=== PATIENT | male | born 1960 | race Caucasian/White ===

== ENCOUNTER 2016-07-10 09:53 | Inpatient (IN) | payer OTHER ==
[~2016-07-10] VITALS: Ht 172.7 cm; Wt 79.8 kg
[2016-07-10 10:02] VITALS: BP 158/98
--- NOTE | 2016-07-10 10:06 | NUR ---
Patient to bed 04.
--- NOTE | 2016-07-10 10:08 | NUR ---
PATIENT PRESENTS TO ED DUE TO BLOOD IN STOOL SINCE LAST NOC. PT DENIES ANY OTHER MEDICAL HX. PT STATES HE DRINKS EXCESSIVE AMOUNTS OF ALCOHOL, HAD BEER THIS AM. DENIES N/V/D; SKIN IS PINK/WARM/DRY; AAOX4 WITH EVEN AND STEADY GAIT; LUNGS CLEAR BL; HR EVEN AND REGULAR; PT DENIES ANY FEVER, CP, SOB, OR COUGH AT THIS TIME; PATIENT STATES PAIN OF 0/10 AT THIS TIME;PATIENT POSITIONED FOR COMFORT; HOB ELEVATED; BEDRAILS UP X2; BED DOWN. ER MD MADE AWARE OF PT STATUS.
--- NOTE | 2016-07-10 10:16 | NUR ---
RELAYED TO DR. POZO RESULT OF URINE DIPSTICK
--- NOTE | 2016-07-10 10:18 | NUR ---
HECTOR (CHETAN) EVALUATING PATIETN AT BEDSIDE.
--- NOTE | 2016-07-10 10:30 | NUR ---
DR. POZO AT BEDSIDE
--- NOTE | 2016-07-10 10:36 | NUR ---
LAB AT BEDSIDE
--- NOTE | 2016-07-10 10:39 | NUR ---
XRAY AT BEDSIDE
--- NOTE | 2016-07-10 12:38 | NUR ---
REPORT GIVEN TO CHANDA PT AWARE WILL BE TRANSFER TO TELE
--- NOTE | 2016-07-10 12:55 | NUR ---
TRANSFER TO TELE VIA PAWEL LEONARDOO, ASSISTED BY KEE SALINAS AND EMT DENA, ASSISTED BY .
[2016-07-10 13:00] VITALS: BP 133/94
--- NOTE | 2016-07-10 13:00 | NUR ---
Admitted from ED with chief complaint of BLOOD IN STOOL THAT STARTED DANCE ARTIST TODAY. PT AAOX4, DJIBOUTIAN SPEAKING ONLY. ChaCha [id number] TANKAGE GRINDER SERVICE. PT IS A 55 y/o ,Male, Cooperative,oriented to call light, bed, phone,television, bathroom, smoking policy,visiting hours, procedures, ID bracelet on. Belongings list checked. INSTRUCTED PT TO CALL FOR ASSISTANCE, CALL LIGHT WITHIN REACH. PT VERBALIZED UNDERSTANDING.
[2016-07-10] MEDS ORDERED: BOWEL EVACUANT DRINK 4,000 ML PDS PO ONE (13:05)
[2016-07-10] MEDS ORDERED: BISACODYL 5 MG TABEC PO ONE ×2 (13:05→20:00)
[2016-07-10] MEDS ORDERED: MORPHINE SULFATE 4 MG/ML SYR IVP PRN (14:00)
[2016-07-10] MEDS ORDERED: ONDANSETRON 4 MG/2 ML VIAL IVP PRN (14:00)
[2016-07-10] MEDS ORDERED: BISACODYL 5 MG TABEC PO SCH ×2 (14:00→20:00)
[2016-07-10] MEDS ORDERED: MORPHINE SULFATE 2 MG/ML SYR IVP PRN (14:00)
[2016-07-10] MEDS ORDERED: BOWEL EVACUANT DRINK 4,000 ML PDS PO SCH (14:00)
[2016-07-10] MEDS ORDERED: ACETAMINOPHEN 325 MG TAB PO PRN (14:00)
[2016-07-10] MEDS ORDERED: LORazepam 2 MG/ML VIAL IM/IVP PRN (14:05)
[2016-07-10] MEDS: NACL 0.9% 1,000 ML IV SCH (14:33)
[2016-07-10 15:30] VITALS: BP 134/91
--- NOTE | 2016-07-10 15:30 | NUR ---
LATE ENTRY AT 1520 HRS: PT'S TOLD CHANDA Yeboah (ITALIAN DIAL EQUIPMENT ENGINEER NURSE) THAT PT ALMOST PASS OUT WHILE IN THE BATHROOM. PER CHANDA Yeboah, PT WAS ALREADY LYING IN BED UPON RUSHING TO THE ROOM. PT STATED HE DID NOT HIT HIS HEAD AND WAS NOT HURT. CALLED DR. GONZALEZ AND MADE AWARE OF THE "UNWITNESSED FALL". VITAL SIGNS STABLE. NO C/O PAIN. NO SOB NOTED. INSTRUCTED PT TO CALL FOR ASSISTANCE, CALL LIGHT WITHIN REACH, PT VERBALIZED UNDERSTANDING. BEDSIDE COMMODE PROVIDED AND PLACED AT THE BEDSIDE. WILL CONTINUE TO MONITOR.
--- NOTE | 2016-07-10 18:15 | NUR ---
PT SEEN BY DR. HILL. NEW ORDERS GIVEN. EXPLAINED TO THE PT RISKS AND BENEFITS OF COLONOSCOPY. CONSENT FOR COLONOSCOPY SIGNED BY PT, VERBALIZED UNDERSTANDING.
--- NOTE | 2016-07-10 19:06 | NUR ---
PT AWAKE, NO SOB NOTED. NO COMPLAINTS MADE. TALKING TO FAMILY AT THE BEDSIDE. NPO POST MIDNIGHT INSTRUCTED PT, VERBALIZED UNDERSTANDING. WILL ENDORSE TO NEXT SHIFT NURSE FOR CONTINUITY OF CARE.
--- NOTE | 2016-07-10 19:15 | NUR ---
RECEIVED PT IN STABLE CONDITION FROM CHANDA Ng RN. NO SOB, NO SIGNS OF DISTRESS. IV TO LT AC 20G PATENT, ASYMPTOMATIC, INTACT, IVF RUNNING. PT IS AOX4, AMBULATORY WITH ASSIST, URUGUAYAN SPEAKING. AT BEDSIDE. SKIN IS INTACT. PT DENIES PAIN AT THIS TIME. EDUCATED PT THAT HE IS TO FINISH ENTIRE BOTTLE OF GOLYTELY BEFORE 0000 AND HE IS NOT TO EAT OR DRINK AFTER THAT SINCE HE WILL BE HAVING A PROCEDURE DONE TOMORROW. PT VERBALIZED UNDERSTANDING. PLAN OF CARE DISCUSSED WITH PT. SAFETY MEASURES IN PLACE. CALL LIGHT WITHIN REACH. WILL CONTINUE TO MONITOR.
[2016-07-10 20:00] VITALS: BP 133/78
[2016-07-10] MEDS: PANTOPRAZOLE 40 MG INJ VIAL IVP SCH (21:21)
--- NOTE | 2016-07-10 21:21 | NUR ---
PT TOLERATED DUE MED WELL. NO SOB, NO SIGNS OF DISTRESS. IV SITE ASYMPTOMATIC, INTACT, PATENT, IVF RUNNING. PT DENIES PAIN AT THIS TIME. PLAN OF CARE DISCUSSED WITH PT. SAFETY MEASURES IN PLACE. CALL LIGHT WITHIN REACH. WILL CONTINUE TO MONITOR.
--- NOTE | 2016-07-10 23:58 | NUR ---
PT FINISHED ENTIRE BOTTLE OF GOLYTELY, EDUCATED PT THAT HE IS NOT TO EAT OR DRINK FROM NOW ON. PT VERBALIZED UNDERSTANDING.
[2016-07-11] VITALS: BP 142/81
--- NOTE | 2016-07-11 00:05 | NUR ---
VS STABLE ON ROOM AIR. NO SOB, NO SIGNS OF DISTRESS. IV SITE ASYMPTOMATIC, INTACT, PATENT, IVF RUNNING. PT DENIES PAIN AT THIS TIME. PLAN OF CARE DISCUSSED WITH PT. SAFETY MEASURES IN PLACE. CALL LIGHT WITHIN REACH. WILL CONTINUE TO MONITOR.
--- NOTE | 2016-07-11 02:04 | NUR ---
PT ASLEEP IN BED. NO SOB, NO SIGNS OF DISTRESS. IV SITE ASYMPTOMATIC, INTACT, PATENT, IVF RUNNING. SAFETY MEASURES IN PLACE. CALL LIGHT WITHIN REACH. WILL CONTINUE TO MONITOR.
[2016-07-11 04:00] VITALS: BP 133/77
[2016-07-11] MEDS: NACL 0.9% 1,000 ML IV SCH ×2 (06:05→10:00)
--- NOTE | 2016-07-11 07:15 | NUR ---
ENDORSED PT IN STABLE CONDITION TO KEE GILLIAM. ALL NEEDS HAVE BEEN MET AT THIS TIME.
--- NOTE | 2016-07-11 07:16 | NUR ---
PT ALERT AND ORIENTED X4. BHUTANESE SPEAKING, BREATHING EVENLY AND UNLABORED. NO SIGNS OF ACUTE DISTRESS. SKIN IS WARM AND DRY. PT ON NPO FOR COLONOSCOPY TODAY. PREOP CHECKLIST DONE BY RN DIABETES EDUCATOR NURSE. ALSO PT HAS BEEN TAKING GOLYTELY AND HAD 3 BM'S LAST NIGHT PER RN DIABETES EDUCATOR RN. DENIES OF ANY PAIN AT THIS TIME. ALL NEEDS ATTENDED, SAFETY PRECAUTIONS MAINTAINED. CALL LIGHT WITHIN REACH.
[2016-07-11] MEDS ORDERED: fentaNYL 0.05 MG/ML VIAL ONE (07:38)
[2016-07-11] MEDS ORDERED: MIDAZOLAM 2 MG/2 ML VIAL ONE (07:38)
[2016-07-11 07:40] VITALS: BP 152/86
--- NOTE | 2016-07-11 07:40 | NUR ---
PT ALERT AND RESPONSIVE NO SIGNS OF ACUTE DISTRESS. WENT OFF UNIT TO OR FOR COLONOSCOPY.
[2016-07-11 08:25] VITALS: BP 133/80
--- NOTE | 2016-07-11 08:25 | NUR ---
PT CAME BACK FROM COLONOSCOPY, AWAKE ALERT AND ORIENTED. NO SIGNS OF ACUTE DISTRESS. DENIES OF ANY NAUSEA PAIN OR DISCOMFORT. ALL NEEDS ATTENDED. SAFETY PRECAUTIONS MAINTAINED. CALL LIGHT WITHIN REACH.
[2016-07-11] MEDS: fentaNYL 0.05 MG/ML VIAL IVP ONE ×2 (08:29→09:33)
[2016-07-11] MEDS: MIDAZOLAM 2 MG/2 ML VIAL IVP ONE ×2 (08:29→09:33)
--- NOTE | 2016-07-11 08:42 | NUR ---
PATIENT HAS BEEN SCREENED AND CATEGORIZED MODERATE NUTRITION RISK. PATIENT WILL BE SEEN WITHIN 3-5 DAYS OF ADMISSION. 07/13/16-07/15/[address]
[2016-07-11] MEDS: PANTOPRAZOLE 40 MG INJ VIAL IVP SCH (08:54)
[2016-07-11 12:00] VITALS: BP 122/70
--- NOTE | 2016-07-11 14:31 | NUR ---
CM NOTE FAXED INITIAL REVIEW TO [facility] FAX# [phone] PH# NOVEMBER [phone]
--- NOTE | 2016-07-11 15:44 | NUR ---
WAS SEEN BY DR. LISA Anderson. RECEIVED ORDER MAY D/C IF H/H IS STABLE AND CLEARED BY GI DOCTOR. PT MADE AWARE. NOTED AND CARRIED OUT
[2016-07-11 16:00] VITALS: BP 124/73
--- NOTE | 2016-07-11 16:48 | NUR ---
H/H OBTAINED AND DR GONZALEZ MADE AWARE. PAGED DR. KAUR. NO RESPONSE. CONTINUE TO MONITOR.
--- NOTE | 2016-07-11 18:05 | NUR ---
CHARGE NURSE AWARE DR Jodi JACOBSON FOR F/U FOR D/C.
--- NOTE | 2016-07-11 18:05 | NUR ---
PAGED DR. KAUR, STILL NO RESPONSE. DR GONZALEZ IS AWARE, F/U WITH GI DOCTOR IF OK TO D/C.
--- NOTE | 2016-07-11 19:00 | NUR ---
PT ALERT AND ORIENTED, NO SIGNS OF ACUTE DISTRESS. ENDORSED TO ONCOMING SOLE SPLITTER NURSE FOR CONTINUITY OF CARE.
[2016-07-11] MEDS ORDERED: NEPHRO-VITE VIT1 TAB PO (19:12)
[2016-07-11] MEDS ORDERED: FERROUS SULFAT325 M1 PO (19:12)
[2016-07-11] MEDS ORDERED: CITRUCEL WI2 GM/Dose PO (19:13)
--- NOTE | 2016-07-11 19:21 | NUR ---
D/C OK BY DR. JACOBSON PER 'S ORDERS. NOTED AND CARRIED OUT. PT MADE AWARE. ENDORSED TO TRIMMING MACHINE OPERATOR NURSE .
--- NOTE | 2016-07-11 19:22 | NUR ---
RECEIVED PT IN STABLE CONDITION FROM KEE GILLIAM. PT TO BE DC. DISCHARGE TEACHING AND INSTRUCTIONS GIVEN BY [place]. PT IS GETTING READY TO LEAVE. NO SOB, NO SIGNS OF DISTRESS. IV TO LT AC 20G PATENT, ASYMPTOMATIC, INTACT, WILL DC. PT IS AOX4, AMBULATORY WITH ASSIST, ENGLISH SPEAKING. AND DAUGHTER AT BEDSIDE. SKIN IS INTACT. PT DENIES PAIN AT THIS TIME. PT S/P COLONOSCOPY TODAY BY MD JACOBSON. DC OK BY MD GONZALEZ AND MD JACOBSON PT GIVEN INSTRUCTIONS TO F/U WITH PCP AND MD JACOBSON. PT VERBALIZED UNDERSTANDING. SAFETY MEASURES IN PLACE. CALL LIGHT WITHIN REACH. WILL CONTINUE TO MONITOR.
--- NOTE | 2016-07-11 19:55 | NUR ---
DC IV TO LT AC, PT TOLERATED WELL. MINIMAL BLEEDING NOTED. ID BANDS REMOVED. ALL QUESTIONS ANSWERED PRIOR TO DC. PT DC UNDER CARE OF FAMILY IN STABLE CONDITION.
== END 2016-07-11 19:55 | disposition home or self-care (01) | DRG 244 ==
LOC: MED 09:53 → MTU 11:58
PROVIDERS: ADMIT Hospitalist; ATTEND Hospitalist
PROC: 0DBN8ZX Excision of Sigmoid Colon, Via Natural or Artificial Opening Endoscopic, Diagnostic (ICD-10-PCS; 2016-07-11)
PROC: 0DBF8ZX Excision of Right Large Intestine, Via Natural or Artificial Opening Endoscopic, Diagnostic (ICD-10-PCS; principal; 2016-07-11 11:20)
PROC: 0DBN8ZZ Excision of Sigmoid Colon, Via Natural or Artificial Opening Endoscopic (ICD-10-PCS; 2016-07-11 11:20)
DX: K57.30 Diverticulosis of large intestine without perforation or abscess without bleeding (principal); D12.5 Benign neoplasm of sigmoid colon; K63.89 Other specified diseases of intestine; F10.20 Alcohol dependence, uncomplicated; D50.0 Iron deficiency anemia secondary to blood loss (chronic); Y90.9 Presence of alcohol in blood, level not specified

== ENCOUNTER 2016-12-04 09:09 | Emergency (ER) | payer OTHER ==
[~2016-12-04] VITALS: Ht 172.7 cm; Wt 72.6 kg
[~2016-12-04 09:09] MED LIST: FERR-193 PO; METH2PDR26 PO; VITA1TAB44 PO
[2016-12-04 09:16] VITALS: BP 132/76
--- NOTE | 2016-12-04 09:19 | NUR ---
Patient ambulated to bed 04.
[2016-12-04] MEDS ORDERED: MORPHINE SULFATE 4 MG/ML SYR IVP ONE (09:20)
[2016-12-04] MEDS ORDERED: NACL 0.9% 1,000 ML IV ONE (09:20)
[2016-12-04] MEDS ORDERED: ONDANSETRON 4 MG/2 ML VIAL IVP ONE (09:20)
--- NOTE | 2016-12-04 09:20 | NUR ---
PT PRESENTS TO ER W/C/O LEFT FLANK PAIN X2 DAYS. PT DENIES ANY MEDICAL HX; DENIES N/V/D; SKIN IS PINK/WARM/DRY; AAOX4 WITH EVEN AND STEADY GAIT; LUNGS CLEAR BL; HR EVEN AND REGULAR; PT DENIES ANY FEVER, CP, SOB, OR COUGH AT THIS TIME; PATIENT STATES PAIN OF 10/10 AT THIS TIME; VSS; PATIENT POSITIONED FOR COMFORT; HOB ELEVATED; BEDRAILS UP X2; BED DOWN. ER MD MADE AWARE OF PT STATUS.
--- NOTE | 2016-12-04 09:21 | NUR ---
Dr. Pratt evaluating patient at bedside.
--- NOTE | 2016-12-04 09:29 | NUR ---
LAB at bedside.
--- NOTE | 2016-12-04 09:36 | NUR ---
Patient taken to CT via wheelchair per tech.
[2016-12-04 09:39] LABS: BASOPHILS # (AUTO) 0.2 K/uL (0.00-0.22); BASOPHILS % (AUTO) 2.7 % (0.0-2.0); EOSINOPHILS # (AUTO) 0.1 K/uL (0-0.4); EOSINOPHILS % (AUTO) 1.6 % (0.0-4.0); HEMATOCRIT 39.5 % (36-52); HEMOGLOBIN 12.8 g/dL (12.0-18.0); LYMPHOCYTES # (AUTO) 1.4 K/uL (2.0-11.5); LYMPHOCYTES % (AUTO) 24.3 % (20.5-51.1); MEAN CORPUSCULAR HEMOGLOBIN 26 pg (27-31); MEAN CORPUSCULAR HGB CONC 32 g/dL (33-37); MEAN CORPUSCULAR VOLUME 81 fL (80-94); MONOCYTES # (AUTO) 0.4 K/uL (0.8-1.0); MONOCYTES % (AUTO) 7.5 % (1.7-9.3); NEUTROPHILS # (AUTO) 3.6 K/uL (1.8-7.7); NEUTROPHILS % (AUTO) 63.9 % (42.2-75.2); PLATELET COUNT (AUTO) 129 K/uL (140-450); RED BLOOD CELL COUNT(AUTO) 4.86 MIL/uL (4.20-6.10); RED CELL DISTRIBUTION WIDTH 16.1 % (11.6-13.7); WHITE BLOOD COUNT (AUTO) 5.7 K/uL (4.8-10.8)
[2016-12-04 09:40] LABS: APPEARANCE,URINE CLEAR (CLEAR); BILIRUBIN,URINE NEGATIVE (NEGATIVE); BLOOD, URINE NEGATIVE (NEGATIVE); COLOR,URINE YELLOW (YELLOW); LEUKOCYTE ESTERASE ,URINE NEGATIVE (NEGATIVE); NITRITE, URINE NEGATIVE (NEGATIVE); PH,URINE 5.5 (5.0-9.0); PROTEIN,URINE NEGATIVE (NEGATIVE); UGLUCOSE NEGATIVE (NEGATIVE)
[2016-12-04 09:50] LABS: BACTERIA,URINE OCCASSIONAL /HPF (None Seen); RBC,URINE 0-5 (RARE) /HPF (0-5); SQUAMOUS EPITHELIAL CELL,UR 0-3 (FEW) /LPF (0-3 (FEW)); WBC,URINE 0-5 (RARE) /HPF (0-5)
[2016-12-04 09:52] LABS: POTASSIUM 3.5 mmol/L (3.5-5.1)
[2016-12-04 09:53] LABS: CALCIUM 8.6 mg/dL (8.5-10.1); CARBON DIOXIDE 31.5 mmol/L (21-32); CREATININE 0.8 mg/dL (0.7-1.3)
[2016-12-04 10:08] LABS: TOTAL BILIRUBIN 1.3 mg/dL (0.0-1.0)
[2016-12-04 10:09] LABS: ALBUMIN 3.5 g/dL (3.4-5.0); TOTAL PROTEIN, SERUM 8.2 g/dL (6.4-8.2)
[2016-12-04] MEDS ORDERED: KETOROLAC 30 MG/ML VIAL IVP ONE (10:15)
[2016-12-04] MEDS ORDERED: KETOROLAC 30 MG/ML VIAL ONE (10:20)
[2016-12-04 11:09] VITALS: BP 131/74
--- NOTE | 2016-12-04 11:09 | NUR ---
Patient discharged with v/s stable. Written and verbal after care instructions given and explained. Patient alert, oriented and verbalized understanding of instructions. Ambulatory with steady gait. All questions addressed prior to discharge. ID band removed. Patient advised to follow up with PMD. Rx of COLACE, NORCO given. Patient educated on indication of medication including possible reaction and side effects. Opportunity to ask questions provided and answered.
== END 2016-12-04 11:09 | disposition home or self-care (01) ==
LOC: MED 09:09
DX: K57.90 Diverticulosis of intestine, part unspecified, without perforation or abscess without bleeding (principal)
CPT/HCPCS: 36415; 74176; 80053; 81001; 83690; 85025; 96361; 96374; 96375; 99285; J1885; J2270; J2405; J7030

== ENCOUNTER 2018-09-12 01:03 | Emergency (ER) | payer OTHER ==
[~2018-09-12] VITALS: Ht 172.7 cm; Wt 81.6 kg
[~2018-09-12 01:03] MED LIST changes: +FERR-15 PO; -FERR-193 PO
--- NOTE | 2018-09-12 01:18 | NUR ---
PT TAKEN TO BED 3
[2018-09-12 01:23] VITALS: BP 144/96
--- NOTE | 2018-09-12 01:25 | NUR ---
BIB . WITH C/O HEADACHE SINCE YESTERDAY. STATES AROUND NOON YESTERDAY A PEICE OF WOOD FELL ON HIS HEAD. STATES HIS HEADACHE HAS BEEN PROGESSIVELY GETTING WORSE SINCE THE INJURY. PAIN 10/10 AT THIS TIME. PUPILS PERRL. PATIENT SITTING IN BED AT [facility]. ERMD NOTIFIED OF PATIENT STATUS.
--- NOTE | 2018-09-12 01:27 | NUR ---
DR LYNCH AT BEDSIDE.
[2018-09-12] MEDS ORDERED: KETOROLAC 60 MG/2 ML VIAL IM ONE (01:30)
--- NOTE | 2018-09-12 02:45 | NUR ---
PATIENT STATES PAIN STILL 01/15. DR LYNCH MADE AWARE WILL AWAIT ORDERS.
[2018-09-12] MEDS ORDERED: traMADol 50 MG TAB PO ONE (03:00)
[2018-09-12 03:16] VITALS: BP 144/96
--- NOTE | 2018-09-12 03:16 | NUR ---
Patient discharged with v/s stable. Written and verbal after care instructions given and explained. Patient alert, oriented and verbalized understanding of instructions. Ambulatory with steady gait. All questions addressed prior to discharge. ID band removed. Patient advised to follow up with PMD. Rx of MOTRIN, TRAMADOL given. Patient educated on indication of medication including possible reaction and side effects. Opportunity to ask questions provided and answered.
== END 2018-09-12 03:16 | disposition home or self-care (01) ==
LOC: MED 01:03
DX: G44.209 Tension-type headache, unspecified, not intractable (principal); Z79.899 Other long term (current) drug therapy
CPT/HCPCS: 96372; 99283; J1885

== ENCOUNTER 2022-07-07 09:01 | Emergency (ER) | payer OTHER ==
[~2022-07-07] VITALS: Ht 175.3 cm; Wt 94.3 kg
[2022-07-07 09:05] VITALS: BP 147/81
--- NOTE | 2022-07-07 09:10 | NUR ---
61M PRESENTS TO ED WITH C/O BLOODY STOOLS SINCE YESTERDAY. PT REPORTS NOTING DARK RED BLOOD YESTERDAY MORNING AFTER FIRST BM. PT DENIES N/V/D, FEVERS, CHILLS OR PAIN. PT REPORTS HX OF GI BLEED 6 YEARS AGO.
[2022-07-07 09:38] LABS: BASOPHILS % (AUTO) 0.5 % (0.0-2.0); EOSINOPHILS # (AUTO) 0.1 K/uL (0-0.4); EOSINOPHILS % (AUTO) 0.7 % (0.0-4.0); HEMATOCRIT 35.1 % (36-52); HEMOGLOBIN 11.6 g/dL (12.0-18.0); LYMPHOCYTES # (AUTO) 1.2 K/uL (2.0-11.5); LYMPHOCYTES % (AUTO) 15.9 % (20.5-51.1); MEAN CORPUSCULAR HEMOGLOBIN 29 pg (27-31); MEAN CORPUSCULAR HGB CONC 33 g/dL (33-37); MEAN CORPUSCULAR VOLUME 86.6 fL (80-94); MONOCYTES # (AUTO) 0.5 K/uL (0.8-1.0); MONOCYTES % (AUTO) 6.3 % (1.7-9.3); NEUTROPHILS % (AUTO) 76.6 % (42.2-75.2); PLATELET COUNT (AUTO) 143 K/uL (140-450); RED BLOOD CELL COUNT(AUTO) 4.05 MIL/uL (4.20-6.10); RED CELL DISTRIBUTION WIDTH 14.5 % (11.6-13.7); WHITE BLOOD COUNT (AUTO) 7.8 K/uL (4.8-10.8)
[2022-07-07 11:43] LABS: ALBUMIN 3.7 g/dL (3.4-5.0); ANION GAP 11.2 (8-16); CARBON DIOXIDE 28.5 mmol/L (21-32); CREATININE 0.8 mg/dL (0.6-1.3); POTASSIUM 3.7 mmol/L (3.5-5.1); TOTAL BILIRUBIN 0.4 mg/dL (0.0-1.0)
[2022-07-07 11:45] VITALS: BP 135/82
--- NOTE | 2022-07-07 11:55 | NUR ---
Patient discharged with v/s stable. Written and verbal after care instructions about diverticulosis and lower GI bleed given and explained. Patient verbalized understanding. Ambulatory with steady gait. All questions addressed prior to discharge. Advised to follow up with PMD.
== END 2022-07-07 11:55 | disposition home or self-care (01) ==
LOC: MED 09:01
DX: K92.2 Gastrointestinal hemorrhage, unspecified (principal); Z79.899 Other long term (current) drug therapy; Z98.890 Other specified postprocedural states
CPT/HCPCS: 36415; 80053; 83690; 85025; 99283